=== PATIENT | female | born 1950 | race Caucasian/White ===

== ENCOUNTER → 2017-05-02 13:12 | Outpatient (CLI) | payer MEDICARE, OTHER | END | disposition home or self-care (01) | LOC: D.MAMMO 07:30 | DX: Z12.31 Encounter for screening mammogram for malignant neoplasm of breast (principal) ==

== ENCOUNTER → 2019-03-12 06:58 | Outpatient (CLI) | payer MEDICARE, OTHER ==
[~2019-03-12] VITALS: Ht 165.1 cm; Wt 69.1 kg
[~2019-03-12 06:58] MED LIST: CALCIUM 500 +1 EAC3 PO; PRENAVITE1 TAB PO
[2019-03-12 07:30] LABS: BASOPHILS 0.9 % (0-2); EOSINOPHILS 2.6 % (0-7); HEMATOCRIT 45.6 % (36.0-48.0); HEMOGLOBIN 15.4 g/dL (12-16); IMMATURE GRANULOCYTES 0.2 % (0-5); LYMPHOCYTES 29.8 % (15-50); MCH 29.2 pg (26.0-34.0); MCHC 33.8 g/dL (31.0-37.0); MCV 86.5 fL (80.0-100.0); MEAN PLATELET VOLUME 10.8 fL (7.4-10.4); MONOCYTES 7.4 % (2-11); NEUTROPHILS 59.1 % (40-80); RBC 5.27 10x6/uL (4.00-5.40); RDW 12.9 % (11.5-14.5); WBC 5.4 10x3/uL (4.8-10.8)
[2019-03-12 07:43] LABS: PLATELET COUNT 84 10x3/uL (130-400)
[2019-03-12 07:50] LABS: APTT 29.9 SECONDS (22.8-39.4); INR 0.97 (0.85-1.17); PROTIME 12.4 SECONDS (11.6-15.0)
[2019-03-12 07:54] LABS: CALC OSMOLALITY 284 mosm/kg (275-300); CALCIUM 9.5 mg/dL (8.5-10.1); CARBON DIOXIDE 29.3 mmol/L (21.0-32.0); CHLORIDE - SERUM 104 mmol/L (98-107); CREATININE - SERUM 0.7 mg/dL (0.6-1.3); GLUCOSE 109 mg/dL (74-106); POTASSIUM - SERUM 4.3 mmol/L (3.5-5.1); SODIUM 142 mmol/L (136-145); UREA NITROGEN 14 mg/dL (7-18); eGFR NON AFRICAN AMERICAN 88 mL/min (90-120)
[2019-03-12 08:29] VITALS: Ht 165.1 cm; Wt 69.1 kg
[2019-03-12 11:14] LABS: PLATELET ESTIMATE DECREASED
--- NOTE | 2019-03-12 12:33 | NUR ---
1230 IIV REMOVED AND PRESSURE HELD
== END | disposition home or self-care (01) ==
LOC: D.SP 02-20 11:00 → D.CT 02-20 11:00 → D.SP 06:58 → D.CT 10:00
PROVIDERS: Specialist; ATTEND Internal Medicine Hematology & Oncology
DX: D45 Polycythemia vera (principal)

== ENCOUNTER → 2019-12-18 16:30 | Outpatient (CLI) | payer MEDICARE, OTHER ==
[2019-03-12 08:29] VITALS: BMI 25.3
== END ==
LOC: D.MAMMO 10:15
PROVIDERS: ATTEND Family Medicine
DX: Z12.31 Encounter for screening mammogram for malignant neoplasm of breast (principal)